=== PATIENT | female | born 1990 | race African-American/Black ===

== ENCOUNTER 2020-06-21 14:03 | Observation (INO) | payer MEDICAID ==
[~2020-06-21] VITALS: Ht 162.6 cm; Wt 65.8 kg
== END 2020-06-21 16:40 | disposition home or self-care (01) ==
LOC: 8 EST LDRP 14:03
PROVIDERS: ADMIT Obstetrics & Gynecology; ATTEND Obstetrics & Gynecology
DX: O26.853 Spotting complicating pregnancy, third trimester (principal); Z3A.33 33 weeks gestation of pregnancy
CPT/HCPCS: 36415; 59025; 86850; 86900; 86901; 90384; 96372; G0378; 99281